=== PATIENT | female | born 2000 | race Hispanic/Latino ===

== ENCOUNTER 2021-12-31 18:24 | Emergency (ER) | payer MEDICAID, OTHER ==
[~2021-12-31] VITALS: Ht 172.7 cm; Wt 105.2 kg
[2021-12-31 18:30] VITALS: BP 122/68
[2021-12-31] MEDS ORDERED: 0.9%NACL 1000ML 1,000 ML IV ONE (19:00)
== END 2021-12-31 23:46 | disposition left against medical advice (07) ==
LOC: EDH 18:24
DX: J02.9 Acute pharyngitis, unspecified (principal); R09.81 Nasal congestion; R52 Pain, unspecified; Z53.21 Procedure and treatment not carried out due to patient leaving prior to being seen by health care provider

== ENCOUNTER 2022-04-02 14:45 | Inpatient (IN) | payer MEDICAID ==
[~2022-04-02] VITALS: Ht 170.2 cm; Wt 121.1 kg
[2022-04-02 15:33] LABS: APPEARANCE,URINE CLOUDY (CLEAR); BILIRUBIN,URINE NEGATIVE (NEGATIVE); COLOR,URINE YELLOW (YELLOW); GLUCOSE, URINE (UA) NEGATIVE (NEGATIVE); KETONES,URINE 15 mg/dL (NEGATIVE); LEUKOCYTE ESTERASE ,URINE MODERATE (NEGATIVE); NITRATE,URINE POSITIVE (NEGATIVE); OCCULT BLOOD,URINE SMALL (NEGATIVE); PH,URINE 6.5 (5.0-8.0); PROTEIN,URINE 100 mg/dL (NEGATIVE); UROBILINOGEN,URINE 0.2 mg/dL (0.2-1.0)
[2022-04-02 15:52] LABS: BASOPHILS % (AUTO) 0.1 % (0.0-5.0); HEMATOCRIT 34.9 % (36-48); LYMPHOCYTES % (AUTO) 5.7 % (21.0-51.0); MEAN CORPUSCULAR HEMOGLOBIN 29.9 pg (27.0-33.0); MEAN CORPUSCULAR HGB CONC 34.1 g/dL (32.0-36.0); MEAN CORPUSCULAR VOLUME 87.7 fL (80-100); MONOCYTES % (AUTO) 6.6 % (3.0-13.0); NEUTROPHILS % (AUTO) 86.8 % (40.0-77.0); PLATELET COUNT (AUTO) 212 K/uL (130-400); RED BLOOD CELL COUNT(AUTO) 3.98 MIL/uL (4.00-5.50); RED CELL DISTRIBUTION WIDTH 12.7 % (11.0-15.5); WHITE BLOOD COUNT (AUTO) 20.7 K/uL (4.8-10.8)
[2022-04-02] MEDS ORDERED: LACTATED RINGERS 1000ML IV PRN (16:00)
[2022-04-02 16:06] LABS: BACTERIA,URINE Moderate /HPF (None Seen); WBC,URINE TNTC /HPF (0-1)
[2022-04-02 16:09] LABS: MUCUS,URINE Few LPF (None Seen)
[2022-04-02] MEDS ORDERED: AMPICILLIN 2GM+NS 100ML 100 ML IV ONE (16:42)
[2022-04-02] MEDS ORDERED: ACETAMINOPHEN 500 MG TABLET ONE (16:43)
[2022-04-02] MEDS ORDERED: AMPICILLIN 2GM+NS 100ML IV ONE (17:00)
[2022-04-02] MEDS: ACETAMINOPHEN 500 MG TABLET PO PRN ×2 (17:05→23:40)
[2022-04-02] MEDS: LACTATED RINGERS 1000ML 1,000 ML IV SCH (17:15)
[2022-04-02 20:00] VITALS: BP 128/80
[2022-04-02] MEDS: AMPICILLIN 2GM+NS 100ML IV SCH (23:43)
[2022-04-02 23:44] VITALS: BP 124/68
[2022-04-03] MEDS: LACTATED RINGERS 1000ML 1,000 ML IV SCH ×4 (01:44→22:54)
[2022-04-03 04:01] VITALS: BP 114/69
[2022-04-03] MEDS: AMPICILLIN 2GM+NS 100ML IV SCH ×3 (06:05→17:41)
[2022-04-03 06:20] LABS: BASOPHILS % (AUTO) 0.1 % (0.0-5.0); HEMATOCRIT 31.2 % (36-48); LYMPHOCYTES % (AUTO) 6.4 % (21.0-51.0); MEAN CORPUSCULAR HEMOGLOBIN 29.8 pg (27.0-33.0); MEAN CORPUSCULAR VOLUME 87.6 fL (80-100); MONOCYTES % (AUTO) 7.3 % (3.0-13.0); NEUTROPHILS % (AUTO) 85.2 % (40.0-77.0); PLATELET COUNT (AUTO) 190 K/uL (130-400); RED BLOOD CELL COUNT(AUTO) 3.56 MIL/uL (4.00-5.50); RED CELL DISTRIBUTION WIDTH 12.8 % (11.0-15.5); WHITE BLOOD COUNT (AUTO) 20.2 K/uL (4.8-10.8)
[2022-04-03] MEDS: ACETAMINOPHEN 500 MG TABLET PO PRN ×2 (06:21→16:10)
[2022-04-03 08:00] VITALS: BP 106/65
[2022-04-03] MEDS: CEFTRIAXONE 1G VIAL IM SCH (08:55)
[2022-04-03 11:40] VITALS: BP 119/71
[2022-04-03 15:30] VITALS: BP 122/81
[2022-04-03 19:24] VITALS: BP 117/70
[2022-04-03 23:09] VITALS: BP 122/69
[2022-04-04] MEDS: AMPICILLIN 2GM+NS 100ML IV SCH ×4 (00:09→18:12)
[2022-04-04 04:13] VITALS: BP 122/77
[2022-04-04] MEDS: ACETAMINOPHEN 500 MG TABLET PO PRN ×2 (04:15→22:17)
[2022-04-04] MEDS: LACTATED RINGERS 1000ML 1,000 ML IV SCH ×4 (05:40→22:17)
[2022-04-04 05:48] LABS: HEMATOCRIT 28.7 % (36-48); MEAN CORPUSCULAR HEMOGLOBIN 29.8 pg (27.0-33.0); MEAN CORPUSCULAR HGB CONC 33.4 g/dL (32.0-36.0); MEAN CORPUSCULAR VOLUME 89.1 fL (80-100); RED BLOOD CELL COUNT(AUTO) 3.22 MIL/uL (4.00-5.50); RED CELL DISTRIBUTION WIDTH 12.9 % (11.0-15.5); WHITE BLOOD COUNT (AUTO) 16.6 K/uL (4.8-10.8)
[2022-04-04 07:15] VITALS: BP 104/58
[2022-04-04] MEDS: CEFTRIAXONE 1G VIAL IM SCH (07:30)
[2022-04-04 11:35] VITALS: BP 122/73
[2022-04-04 16:10] VITALS: BP 114/77
[2022-04-04 19:27] VITALS: BP 127/80
[2022-04-04 23:37] VITALS: BP 117/61
[2022-04-05] MEDS: AMPICILLIN 2GM+NS 100ML IV SCH ×2 (00:11→06:16)
[2022-04-05 03:48] VITALS: BP 122/74
[2022-04-05 08:24] VITALS: BP 126/58
[2022-04-05] MEDS ORDERED: MACR100 PO (08:26)
== END 2022-04-05 09:30 | disposition home or self-care (01) | DRG 566 ==
LOC: EDH 14:45 → LDH 14:46 → OBSVTOIN 14:46 → WSH 21:47
PROVIDERS: ADMIT Obstetrics & Gynecology; ATTEND Obstetrics & Gynecology
DX: O60.02 Preterm labor without delivery, second trimester (principal); N39.0 Urinary tract infection, site not specified; Z20.822 Contact with and (suspected) exposure to COVID-19; Z3A.18 18 weeks gestation of pregnancy
CPT/HCPCS: 36415; 59025; 76805; 76819; 81001; 85025; 85027; 87077; 87088; 87186; 87635; 87804; 96360; 96361; G0378; J0290; J0696; J7120